=== PATIENT | female | born 1970 | race Caucasian/White ===

== ENCOUNTER 2022-11-11 00:23 | Emergency (ER) | payer OTHER ==
[2022-11-11 00:26] VITALS: BP 129/82; PULSE 76; RESP 18; TEMP 97.6; BMI 25.7
[2022-11-11] MEDS ORDERED: MAG HYDROX/AL HYDROX/SIMETH 30 ML UNIT-DOSE CUP PO ONE ×2 (01:26→02:15)
[2022-11-11] MEDS ORDERED: ACETAMINOPHEN 325 MG TABLET (FP) PO ONE (01:26)
[2022-11-11] MEDS ORDERED: FAMOTIDINE 20 MG TABLET PO ONE (01:29)
[2022-11-11] MEDS ORDERED: ACETAMINOPHEN 325 MG TABLET (FP) ONE (01:30)
[2022-11-11] MEDS ORDERED: MAG HYDROX/AL HYDROX/SIMETH 30 ML UNIT-DOSE CUP ONE (01:31)
== END 2022-11-11 02:32 | disposition home or self-care (01) ==
LOC: JER 00:23
DX: R51.9 Headache, unspecified (principal); R10.33 Periumbilical pain; R11.2 Nausea with vomiting, unspecified; R20.0 Anesthesia of skin; R20.2 Paresthesia of skin; K25.9 Gastric ulcer, unspecified as acute or chronic, without hemorrhage or perforation; B96.81 Helicobacter pylori [H. pylori] as the cause of diseases classified elsewhere; Z79.1 Long term (current) use of non-steroidal anti-inflammatories (NSAID)
CPT/HCPCS: 99283-25